=== PATIENT | male | born 1980 | race Caucasian/White ===

== ENCOUNTER 2017-07-26 18:18 | Emergency (ER) | payer SELFPAY ==
[2017-07-26] MEDS: MORPHINE SULFATE 10 MG/ML SOL IV ONE ×2 (18:31→19:48)
[2017-07-26] MEDS: ONDANSETRON HCL 4 MG/2 ML SOL IV ONE (18:35)
[2017-07-26 18:39] VITALS: RESP 20; TEMP 97.1
[2017-07-26 18:49] LABS: BASOPHILS % (AUTO) 0 % (0-3); EOSINOPHILS % (AUTO) 0 % (0-9); HEMATOCRIT 38 % (39-53); MEAN CORPUSCULAR HGB CONC 32.2 gm/dl (32.0-36.0); NEUTROPHILS % (AUTO) 82.4 % (37-80)
[2017-07-26] MEDS ORDERED: ONDANSETRON HCL 4 MG/2 ML SOL ONE (18:49)
[2017-07-26] MEDS ORDERED: MORPHINE SULFATE 10 MG/ML SOL ONE ×2 (18:49→19:44)
[2017-07-26 19:03] LABS: MEAN CORPUSCULAR VOLUME 72 fL (80-100)
[2017-07-26 19:04] LABS: ANISOCYTOSIS SLIGHT AMT
[2017-07-26 19:07] LABS: ALBUMIN 3.3 gm/dl (3.4-5.0); CALCIUM 9.6 mg/dl (8.5-10.1); POTASSIUM 3.6 mMol/L (3.5-5.1)
[2017-07-26] MEDS: SODIUM CHLORIDE 0.9% 1000 ML SOL IV SCH (19:14)
[2017-07-26] MEDS: SODIUM CHLORIDE 0.9% FLUSH 10 ML SOL IV PRN (19:45)
[2017-07-26 22:10] VITALS: BP 140/74; PULSE 64; O2SAT 100
== END 2017-07-26 21:00 | disposition short-term general hospital (02) | DRG 444 ==
LOC: ED 18:18
DX: K80.20 Calculus of gallbladder without cholecystitis without obstruction (principal); K85.90 Acute pancreatitis without necrosis or infection, unspecified
CPT/HCPCS: 80053; 82150; 85025; 96365; 96374; 96375; 99284; 99285; J2270; J2405